=== PATIENT | female | born 1970 | race Caucasian/White ===

== ENCOUNTER → 2016-09-15 | Outpatient (CLI) | payer OTHER ==
[~2016-09-15] MED LIST: ASTELIN; AUGM875T27 PO; COLA100C PO; FERR325T PO; FLAG500T PO; FLUO20CA8 PO; INDO75CA PO; LAMO100T PO; LEVO25TA5 PO; MISO200T3 PO; NARA2.5T PO; OMEP20CA3 PO; REGL5TAB2 PO; TRAZ50TA4 PO; TYLE325T5 PO; desyrel PO
--- NOTE | 2016-09-15 10:28 | REP ---
Clinical: cough . Comparison: 04/12/2012 . Technique: PA and lateral. Findings: The mediastinum and cardiac silhouette are normal. The lung grant are clear and without acute consolidation, effusion, or pneumothorax. The skeletal structures are intact and normal. Impression: 1. No acute cardiopulmonary process.
== END ==
LOC: M CLY 09:51
PROVIDERS: ATTEND Family Medicine
DX: R05 Cough (principal)

== ENCOUNTER → 2017-04-27 | Outpatient (REF) | payer OTHER ==
[~2017-04-27] MED LIST changes: -AUGM875T27 PO; +AUGM875T28 PO; -COLA100C PO; +COLA100C5 PO; +FERR1TAB8 PO; -FERR325T PO; -INDO75CA PO; +INDO75CA2 PO; -MISO200T3 PO; +MISO200T56 PO; +TRAZ50TA11 PO; -TRAZ50TA4 PO
[2017-04-27 17:20] LABS: BASO # 0.1 10^3/uL (0.0-0.2); BASO % 0.9 % (0.0-1.0); EOS # 0.1 10^3/uL (0.0-0.50); EOS % 1.5 % (0.0-3.0); IMMATURE GRANULOCYTE % 0.5 % (0-0); LYMPH # 1.8 10^3/uL (1.5-4.5); LYMPH % 31.2 % (24.0-44.0); MEAN CORPUSCULAR HEMOGLOBIN 30.2 pg (27.0-33.0); MEAN CORPUSCULAR HGB CONC 31.5 g/dl (32.0-36.5); MONO # 0.3 10^3/uL (0.0-0.8); MONO % 4.8 % (0.0-5.0); NEUTROPHILS # 3.6 10^3/uL (1.8-7.7); NEUTROPHILS % 61.1 % (36.0-66.0); PLATELET COUNT, AUTOMATED 420 10^3/uL (150-450); RED CELL DISTRIBUTION WIDTH 13.3 % (11.5-14.5); WHITE BLOOD COUNT 5.8 10^3/uL (4.0-10.0)
[2017-04-27 17:23] LABS: THYROXINE (T4) 12.4 UG/DL (4.5-12.0)
== END ==
LOC: M SFHCCLAY 09:54
PROVIDERS: ATTEND Family Medicine
DX: D50.9 Iron deficiency anemia, unspecified (principal); E03.8 Other specified hypothyroidism; E55.9 Vitamin D deficiency, unspecified

== ENCOUNTER → 2018-08-15 | Outpatient (REF) | payer OTHER ==
[~2018-08-15] MED LIST changes: +TRAZ-160 PO; -TRAZ50TA11 PO
[2018-08-16 11:33] LABS: BASO # 0.1 10^3/uL (0.0-0.2); BASO % 0.9 % (0.0-1.0); EOS # 0.2 10^3/uL (0.0-0.50); EOS % 2.6 % (0.0-3.0); HEMATOCRIT 35.1 % (36.0-47.0); HEMOGLOBIN 11.2 g/dl (12.0-15.5); LYMPH # 2.5 10^3/uL (1.5-4.5); LYMPH % 31.5 % (24.0-44.0); MEAN CORPUSCULAR HEMOGLOBIN 30.3 pg (27.0-33.0); MEAN CORPUSCULAR HGB CONC 31.9 g/dl (32.0-36.5); MEAN CORPUSCULAR VOLUME 94.9 fl (80.0-96.0); MONO # 0.5 10^3/uL (0.0-0.8); MONO % 6.6 % (0.0-5.0); NEUTROPHILS # 4.5 10^3/uL (1.8-7.7); NEUTROPHILS % 57.3 % (36.0-66.0); PLATELET COUNT, AUTOMATED 406 10^3/uL (150-450); WHITE BLOOD COUNT 7.8 10^3/uL (4.0-10.0)
[2018-08-16 11:52] LABS: THYROID STIMULATING HORMONE 0.74 uIU/ML (0.358-3.740)
== END ==
LOC: M SFHCCLAY 15:32
PROVIDERS: ATTEND Family Medicine
DX: D50.9 Iron deficiency anemia, unspecified (principal); E03.8 Other specified hypothyroidism

== ENCOUNTER → 2019-07-11 | Outpatient (REF) | payer OTHER ==
[~2019-07-11] MED LIST changes: +FLUO20CA20 PO; -FLUO20CA8 PO; +INDO75CA PO; -INDO75CA2 PO; -LAMO100T PO; +LAMO100T3 PO; +OMEP1CAP73 PO; -OMEP20CA3 PO; -TRAZ-160 PO; +TRAZ-252 PO
[2019-07-12 11:52] LABS: BASO # 0.1 10^3/uL (0.0-0.2); BASO % 1.1 % (0.0-1.0); EOS # 0.1 10^3/uL (0.0-0.5); HEMATOCRIT 41.2 % (36.0-47.0); HEMOGLOBIN 12.8 g/dl (12.0-15.5); LYMPH # 2.3 10^3/uL (1.5-5.0); LYMPH % 31.8 % (24.0-44.0); MEAN CORPUSCULAR HEMOGLOBIN 30.3 pg (27.0-33.0); MEAN CORPUSCULAR HGB CONC 31.1 g/dl (32.0-36.5); MEAN CORPUSCULAR VOLUME 97.4 fl (80.0-96.0); MONO # 0.4 10^3/uL (0.0-0.8); NEUTROPHILS # 4.2 10^3/uL (1.5-8.5); NEUTROPHILS % 58.5 % (36.0-66.0); PLATELET COUNT, AUTOMATED 406 10^3/uL (150-450); RED BLOOD COUNT 4.23 10^6/uL (4.00-5.40); WHITE BLOOD COUNT 7.1 10^3/uL (4.0-10.0)
[2019-07-12 12:09] LABS: ALBUMIN 4.3 GM/DL (3.2-5.2); ALT/SGPT 19 U/L (12-78); BILIRUBIN,TOTAL 0.5 MG/DL (0.2-1.0); BLOOD UREA NITROGEN 12 MG/DL (7-18); CALCIUM LEVEL 9.3 MG/DL (8.5-10.1); CARBON DIOXIDE LEVEL 30 MEQ/L (21-32); CHLORIDE LEVEL 102 MEQ/L (98-107); GLOMERULAR FILTRATION RATE > 60.0 (>58); GLUCOSE, FASTING 96 MG/DL (70-100); IRON (FE) 55 UG/DL (50-170); POTASSIUM SERUM 4.3 MEQ/L (3.5-5.1); SODIUM LEVEL 138 MEQ/L (136-145); TOTAL PROTEIN 7.5 GM/DL (6.4-8.2)
== END ==
LOC: M SFHCCLAY 15:56
PROVIDERS: ATTEND Family Medicine
DX: D50.9 Iron deficiency anemia, unspecified (principal); E03.8 Other specified hypothyroidism; K31.84 Gastroparesis

== ENCOUNTER → 2019-12-03 | Outpatient (CLI) | payer OTHER ==
--- NOTE | 2019-12-08 13:50 | SLEEPCENT ---
DATE OF STUDY: 12/03/2019 ORDERED BY: Ritu Albert Nocturnal polysomnography was performed for evaluation of sleep physiology in this patient with history of snoring, excessive somnolence and multiple awakenings in the night. 7 hours and 51 minutes of data were reviewed. There were 412.5 minutes of sleep identified. Sleep latency was prolonged at 22 minutes. REM latency was prolonged at 255 minutes. Sleep architecture showed poor progression. There was some fragmentation and 2 REM cycles noted. Overall sleep efficiency was 93%. The patient's electrocardiogram showed a sinus rhythm with an average heart rate of 60 beats per minute. Electroencephalogram (EEG) showed reasonably normal waveforms for awake and sleep. There were 65 respiratory events identified of 10 seconds in duration or greater for an apnea-hypopnea index of 9.5. The events were primarily obstructive, not exclusive to sleep stage nor body posture. Arousals from respiratory events occurred 1.2 times per hour and oxygen desaturations were seen into the 80s. There was some activity noted in the limb leads, but arousals were few. IMPRESSION: Obstructive sleep apnea syndrome (G47.33). Apnea-hypopnea index 9.5. RECOMMENDATION: The patient should be encouraged to return to the sleep disorder center for pressure therapy. In the interim, alcohol and sedative avoidance should be practiced and caution exercised during the operation of motor vehicles.
== END ==
LOC: M SLEEP 20:00
PROVIDERS: ATTEND Nurse Practitioner Adult Health
DX: G47.30 Sleep apnea, unspecified (principal)

== ENCOUNTER → 2020-01-07 | Outpatient (CLI) | payer OTHER ==
[~2020-01-07] MED LIST changes: -INDO75CA PO; +INDO75CA10 PO
--- NOTE | 2020-03-02 07:52 | SLEEPCENT ---
DATE: 01/07/2020 ORDERED BY: Ritu Albert Nocturnal polysomnography was performed for the titration of pressure therapy in this patient with obstructive sleep apnea syndrome, apnea-hypopnea index 9.5. For testing, the patient was fit with a ResMed AirFit F20 full-face mask of medium size, 4 cm of water pressure was applied to the circuit, and the lights were extinguished. There was 8 hours and 9 minutes of data reviewed. There were 320.5 minutes of sleep identified. Sleep latency was prolonged at 35 minutes. REM sleep was not achieved. Overall sleep architecture was fair but with poor sleep progression and periods of wakefulness. The patient's sleep efficiency was 66.4% and, as noted, no REM sleep was appreciated. The electrocardiogram showed a sinus rhythm with an average heart rate of 55 beats per minute. Rate ranged 50-80. EEG shows reasonably normal waveforms for wake and sleep. Persistence of snoring prompted an increase in CPAP pressure. Reasonable palliation was achieved at a CPAP pressure of +9, though the patient continued to have periods of arousal. IMPRESSIONS: Obstructive sleep apnea syndrome (G47.33). RECOMMENDATION: Nightly use of pressure therapy, 9 cm of water. Cc:: Dr. Dru Samson /carol MONROY
== END ==
LOC: M SLEEP 20:00
PROVIDERS: ATTEND Nurse Practitioner Adult Health
DX: G47.33 Obstructive sleep apnea (adult) (pediatric) (principal)

== ENCOUNTER → 2020-07-13 | Outpatient (REF) | payer OTHER | LOC: M SFHCCLAY 16:19 | PROVIDERS: ATTEND Family Medicine | DX: E03.8 Other specified hypothyroidism (principal); D50.9 Iron deficiency anemia, unspecified ==

== ENCOUNTER → 2020-07-23 | Outpatient (REF) | payer OTHER | LOC: M SFHCCLAY 14:44 | PROVIDERS: ATTEND Family Medicine | DX: E03.8 Other specified hypothyroidism (principal); D50.9 Iron deficiency anemia, unspecified ==

== ENCOUNTER → 2020-08-11 | Outpatient (REF) | payer OTHER ==
[2020-08-12 11:59] LABS: BASO # 0.1 10^3/uL (0.0-0.2); BASO % 1.2 % (0.0-1.0); EOS # 0.2 10^3/uL (0.0-0.5); EOS % 2.6 % (0.0-3.0); HEMATOCRIT 39.4 % (36.0-47.0); HEMOGLOBIN 12.4 g/dl (12.0-15.5); LYMPH # 2.3 10^3/uL (1.5-5.0); LYMPH % 34.4 % (24.0-44.0); MEAN CORPUSCULAR HEMOGLOBIN 30.1 pg (27.0-33.0); MEAN CORPUSCULAR HGB CONC 31.5 g/dl (32.0-36.5); MEAN CORPUSCULAR VOLUME 95.6 fl (80.0-96.0); MONO # 0.4 10^3/uL (0.0-0.8); MONO % 6.5 % (2.0-8.0); NEUTROPHILS # 3.6 10^3/uL (1.5-8.5); NEUTROPHILS % 54.1 % (36.0-66.0); PLATELET COUNT, AUTOMATED 316 10^3/uL (150-450); RED BLOOD COUNT 4.12 10^6/uL (4.00-5.40); WHITE BLOOD COUNT 6.6 10^3/uL (4.0-10.0)
[2020-08-12 12:02] LABS: THYROID STIMULATING HORMONE 0.899 uIU/ML (0.358-3.740)
== END ==
LOC: M SFHCCLAY 15:34
PROVIDERS: ATTEND Family Medicine
DX: E03.8 Other specified hypothyroidism (principal); D50.9 Iron deficiency anemia, unspecified

== ENCOUNTER → 2022-07-21 | Outpatient (REF) | payer OTHER ==
[~2022-07-21] MED LIST changes: +FLUO-96 PO; -FLUO20CA20 PO
[2022-07-21 17:33] LABS: BASO # 0.1 10^3/uL (0.0-0.2); BASO % 0.7 % (0.0-1.0); EOS # 0.1 10^3/uL (0.0-0.5); EOS % 1.6 % (0.0-3.0); HEMATOCRIT 38.3 % (36.0-47.0); HEMOGLOBIN 12.4 g/dl (12.0-15.5); LYMPH # 2.3 10^3/uL (1.5-5.0); LYMPH % 32.6 % (24.0-44.0); MEAN CORPUSCULAR HEMOGLOBIN 31.4 pg (27.0-33.0); MEAN CORPUSCULAR HGB CONC 32.4 g/dl (32.0-36.5); MONO # 0.6 10^3/uL (0.0-0.8); MONO % 8.1 % (2.0-8.0); NEUTROPHILS # 3.9 10^3/uL (1.5-8.5); NEUTROPHILS % 56.4 % (36.0-66.0); PLATELET COUNT, AUTOMATED 313 10^3/uL (150-450); RED BLOOD COUNT 3.95 10^6/uL (4.00-5.40); WHITE BLOOD COUNT 6.9 10^3/uL (4.0-10.0)
[2022-07-21 22:58] LABS: FREE T4 1.02 NG/DL (0.89-1.76); THYROID STIMULATING HORMONE 0.824 uIU/ML (0.55-4.78); TOTAL T3 103.7 NG/DL (60.0-181.0)
[2022-07-22 00:05] LABS: IRON (FE) 57 UG/DL (50-170)
[2022-07-22 00:08] LABS: ALBUMIN 3.9 G/DL (3.2-5.2); ALKALINE PHOSPHATASE 73 U/L (46-116); ALT/SGPT 19 U/L (7.0-40); AST/SGOT 19 U/L (<34); BILIRUBIN,TOTAL 0.6 MG/DL (0.3-1.2); BLOOD UREA NITROGEN 12 MG/DL (9-23); CALCIUM LEVEL 9.5 MG/DL (8.5-10.1); CARBON DIOXIDE LEVEL 26 MMOL/L (20-31); CHLORIDE LEVEL 102 MMOL/L (98-107); CREATININE FOR GFR 0.94 MG/DL (0.55-1.30); GLOMERULAR FILTRATION RATE > 60.0 (>58); GLUCOSE, FASTING 82 MG/DL (60-100); POTASSIUM SERUM 4.5 MMOL/L (3.5-5.1); SODIUM LEVEL 136 MMOL/L (136-145)
== END ==
LOC: M SFHCCLAY 14:52
PROVIDERS: ATTEND Family Medicine
DX: I10 Essential (primary) hypertension (principal); F41.8 Other specified anxiety disorders; D50.9 Iron deficiency anemia, unspecified; E03.8 Other specified hypothyroidism

== ENCOUNTER → 2023-07-04 | Outpatient (CLI) | payer OTHER ==
[~2023-07-04] MED LIST changes: -MISO200T56 PO; +MISO200T83 PO; +PROHANCE 279.3MG/ML 15ML VIAL ONE; +PROHANCE 279.3MG/ML 5ML VIAL ONE
== END ==
LOC: M PLAIMG 12:30
PROVIDERS: ATTEND Psychiatry & Neurology Neurology
DX: R29.6 Repeated falls (principal); G35 Multiple sclerosis
CPT/HCPCS: 70553; 72156; A9576

== ENCOUNTER → 2023-07-20 | Outpatient (REF) | payer OTHER ==
[~2023-07-20] MED LIST changes: -PROHANCE 279.3MG/ML 15ML VIAL ONE; -PROHANCE 279.3MG/ML 5ML VIAL ONE
[2023-07-20 17:33] LABS: BASO # 0.1 10^3/uL (0.0-0.2); BASO % 0.8 % (0.0-1.0); EOS # 0.2 10^3/uL (0.0-0.5); EOS % 2.1 % (0.0-3.0); HEMATOCRIT 37.4 % (36.0-47.0); HEMOGLOBIN 12.3 g/dl (12.0-15.5); LYMPH # 2.6 10^3/uL (1.5-5.0); LYMPH % 34.8 % (24.0-44.0); MEAN CORPUSCULAR HEMOGLOBIN 31.9 pg (27.0-33.0); MEAN CORPUSCULAR HGB CONC 32.9 g/dl (32.0-36.5); MEAN CORPUSCULAR VOLUME 96.9 fl (80.0-96.0); MONO # 0.5 10^3/uL (0.0-0.8); MONO % 6.2 % (2.0-8.0); NEUTROPHILS # 4.2 10^3/uL (1.5-8.5); NEUTROPHILS % 55.3 % (36.0-66.0); PLATELET COUNT, AUTOMATED 382 10^3/uL (150-450); RED BLOOD COUNT 3.86 10^6/uL (4.00-5.40); WHITE BLOOD COUNT 7.6 10^3/uL (4.0-10.0)
[2023-07-20 18:02] LABS: THYROID STIMULATING HORMONE 1.26 uIU/ML (0.55-4.78)
[2023-07-20 18:03] LABS: FOLATE 11.7 NG/ML (>5.4)
== END ==
LOC: M LABDRAWC 16:54
PROVIDERS: ATTEND Psychiatry & Neurology Neurology
DX: R29.6 Repeated falls (principal)

== ENCOUNTER → 2024-05-03 | Outpatient (REF) | payer OTHER ==
[2024-05-03 12:32] LABS: IRON (FE) 70 UG/DL (50-170)
[2024-05-03 12:33] LABS: ALBUMIN 3.7 G/DL (3.2-5.2); ALKALINE PHOSPHATASE 94 U/L (35-104); ALT/SGPT 21 U/L (7.0-40); AST/SGOT 10 U/L (<34); BILIRUBIN,TOTAL 0.4 MG/DL (0.3-1.2); BLOOD UREA NITROGEN 16 MG/DL (9-23); CALCIUM LEVEL 10.1 MG/DL (8.5-10.1); CARBON DIOXIDE LEVEL 30 MMOL/L (20-31); CHLORIDE LEVEL 103 MMOL/L (98-107); CHOLESTEROL LEVEL 242 MG/DL (<200); CREATININE FOR GFR 0.92 MG/DL (0.55-1.30); GLOMERULAR FILTRATION RATE > 60.0 (>51); GLUCOSE, FASTING 93 MG/DL (60-100); HDL CHOLESTEROL 50.4 MG/DL (>40); NON-HDL-C 191.6 MG/DL; POTASSIUM SERUM 4.5 MMOL/L (3.5-5.1); SODIUM LEVEL 141 MMOL/L (136-145); THYROID STIMULATING HORMONE 1.164 uIU/ML (0.55-4.78); TRIGLYCERIDES LEVEL 138 MG/DL (<150)
[2024-05-03 12:35] LABS: FREE T4 1.14 NG/DL (0.89-1.76)
[2024-05-03 12:43] LABS: HEMATOCRIT 38.9 % (36.0-47.0); HEMOGLOBIN 12.1 g/dl (12.0-15.5); MEAN CORPUSCULAR HEMOGLOBIN 30.7 pg (27.0-33.0); MEAN CORPUSCULAR HGB CONC 31.1 g/dl (32.0-36.5); MEAN CORPUSCULAR VOLUME 98.7 fl (80.0-96.0); PLATELET COUNT, AUTOMATED 345 10^3/uL (150-450); RED BLOOD COUNT 3.94 10^6/uL (4.00-5.40); WHITE BLOOD COUNT 6.2 10^3/uL (4.0-10.0)
== END ==
LOC: M SFHCCLAY 08:16
PROVIDERS: ATTEND Family Medicine
DX: I10 Essential (primary) hypertension (principal); E03.8 Other specified hypothyroidism; D50.9 Iron deficiency anemia, unspecified

== ENCOUNTER → 2024-08-14 | Outpatient (CLI) | payer OTHER | LOC: M WHC 08:04 | PROVIDERS: ATTEND Family Medicine | DX: Z12.31 Encounter for screening mammogram for malignant neoplasm of breast (principal) ==

== ENCOUNTER → 2024-12-25 | Outpatient (REF) | payer OTHER ==
[2024-12-29 00:52] LABS: HPV APTIMA Not Detected (Not Detected)
== END ==
LOC: M SFHCWAGY 16:53
PROVIDERS: ATTEND Nurse Practitioner Family
DX: Z12.4 Encounter for screening for malignant neoplasm of cervix (principal)
CPT/HCPCS: 87624; G0123

== ENCOUNTER → 2025-01-23 | Outpatient (CLI) | payer OTHER ==
[~2025-01-23] MED LIST changes: +ISOVUE-370 76% 100 ML VIAL ONE
== END ==
LOC: M PLAIMG 11:56
PROVIDERS: ATTEND Family Medicine
DX: K57.20 Diverticulitis of large intestine with perforation and abscess without bleeding (principal)
CPT/HCPCS: 74177; Q9967

== ENCOUNTER → 2025-02-19 | Outpatient (REF) | payer OTHER ==
[~2025-02-19] MED LIST changes: -ISOVUE-370 76% 100 ML VIAL ONE
[2025-02-19 18:20] LABS: C REACTIVE PROTEIN QUANTITATIV 1.26 MG/DL (<1.0)
[2025-02-19 18:21] LABS: ALT/SGPT 27.0 U/L (7.0-40); AST/SGOT 25.0 U/L (<34); CALCIUM LEVEL 10.2 MG/DL (8.5-10.1); CARBON DIOXIDE LEVEL 31.0 MMOL/L (20-31); CHLORIDE LEVEL 101.0 MMOL/L (98-107); CREATININE FOR GFR 0.94 MG/DL (0.55-1.30); GLOMERULAR FILTRATION RATE 73.0 (>51); POTASSIUM SERUM 4.5 MMOL/L (3.5-5.1); SODIUM LEVEL 143.0 MMOL/L (136-145)
[2025-02-19 18:53] LABS: PLATELET COUNT, AUTOMATED 346 10^3/uL (150-450)
[2025-02-19 19:07] LABS: ERYTHROCYTE SEDIMENTATION RATE 51 mm/hr (0-30)
== END ==
LOC: M LABDRAWC 17:38
PROVIDERS: ATTEND Internal Medicine Gastroenterology
DX: K59.00 Constipation, unspecified (principal); K57.92 Diverticulitis of intestine, part unspecified, without perforation or abscess without bleeding